=== PATIENT | female | born 1995 | race Caucasian/White ===

== ENCOUNTER → 2021-05-15 | Emergency (ER) | payer SELFPAY ==
[~2021-05-15] VITALS: Ht 170.2 cm; Wt 68.2 kg
[2021-05-15 06:47] VITALS: TEMP 98.1
[2021-05-15 07:08] LABS: BASO % 0.5 % (0.0-2.0); EOS # 0.4 (0.0-0.7); EOS % 4.5 % (0-4.0); GRAN # 5.2 (1.4-6.5); GRAN % 67.6 % (42.2-75.2); HEMOGLOBIN 11.8 g/dl (12.5-16.0); LYMPH # 1.7 (1.2-3.4); LYMPH % 21.4 % (20.0-51.0); MEAN CELL VOLUME 83 fl (80.0-100.0); MEAN CORPUSCULAR HEMOGLOBIN 27 pg (27.0-31.0); MEAN CORPUSCULAR HGB CONC 32 g/dl (33.0-37.0); MEAN PLATELET VOLUME 8.8 fl (7.4-10.4); MONO # 0.4 (0.1-0.6); MONO % 5.6 % (1.7-9.3); PLATELET COUNT 305 K/mm3 (130-400); RED BLOOD COUNT 4.45 M/mm3 (4.10-5.30); REDCELL DISTRIBUTION WIDTH-CV 13.1 % (11.5-14.5)
[2021-05-15 07:20] LABS: ANION GAP 5 mmol/L (7-16); BLOOD UREA NITROGEN 16 mg/dL (7-17); CALCIUM 8.4 mg/dL (8.4-10.2); CARBON DIOXIDE 27 mmol/L (22-30); CHLORIDE 105 mmol/L (98-107); CREATININE, serum 0.76 (0.52-1.25); GLUCOSE 104 mg/dL (74-106); POTASSIUM 4.3 mmol/L (3.4-5.0); SODIUM 138 mmol/L (137-145)
[2021-05-15 07:39] LABS: TROPONIN-I < 0.012 ng/mL (0.000-0.035)
[2021-05-15 07:46] VITALS: BP 111/60; PULSE 78
== END ==
LOC: COL.ER 06:32
PROVIDERS: Emergency Medicine
DX: I95.9 Hypotension, unspecified (principal)